=== PATIENT | male | born 1940 | race Hispanic/Latino ===

== ENCOUNTER 2018-05-08 13:28 | Inpatient (IN) | payer MEDICARE ==
[~2018-05-08] VITALS: Ht 177.8 cm; Wt 137.4 kg
[2018-05-08 14:02] LABS: BASOPHILS % (AUTO) 0.4 % (0.0-5.0); EOSINOPHILS % (AUTO) 0.1 % (0.0-8.0); HEMATOCRIT 49.1 % (42-54); LYMPHOCYTES % (AUTO) 9.5 % (21.0-51.0); MEAN CORPUSCULAR HEMOGLOBIN 29.1 pg (27.0-33.0); MEAN CORPUSCULAR HGB CONC 33.8 g/dL (32.0-36.0); MEAN CORPUSCULAR VOLUME 86.1 fL (79-99); MONOCYTES % (AUTO) 9.1 % (3.0-13.0); NEUTROPHILS % (AUTO) 80.9 % (40.0-77.0); PLATELET COUNT (AUTO) 230 K/uL (130-400); RED CELL DISTRIBUTION WIDTH 14.7 % (11.0-15.5); WHITE BLOOD COUNT (AUTO) 20.4 K/uL (4.8-10.8)
[2018-05-08 14:07] LABS: CARBON DIOXIDE 27 mmol/L (21-32); CHLORIDE 99 mmol/L (101-111); GLOMERULAR FILTR. RATE CALC 77 mL/min (>60); GLUCOSE,RANDOM 154 mg/dL (70-105); POTASSIUM 3.9 mmol/L (3.5-5.1); SODIUM SERUM 137 mmol/L (136-145); UREA NITROGEN, BLOOD 10 mg/dL (7-18)
[2018-05-08 14:11] LABS: INR 0.91 (0.85-1.15); PROTHROMBIN TIME 9.6 SEC (9.6-11.6)
[2018-05-08 14:17] LABS: ALBUMIN 3.7 g/dL (3.5-5.0)
[2018-05-08 14:22] LABS: ALANINE AMINOTRANSFERASE 27 U/L (12-78); ASPARTATE AMINOTRANSFERASE 12 U/L (10-37); BILIRUBIN,TOTAL 1.1 mg/dL (0.2-1.0); CREATINE KINASE MB < 0.5 ng/mL (0.5-3.6); CREATINE KINASE, TOTAL 44 U/L (21-232); MYOGLOBIN 30 ng/mL (10-92); TOTAL PROTEIN, SERUM 7.5 g/dL (6.0-8.3); TROPONIN I < 0.04 ng/mL (0.00-0.06)
[2018-05-08] MEDS ORDERED: ACETAMINOPHEN EXTRA STRENGTH 500 MG TABLET ONE (14:33)
[2018-05-08 14:34] LABS: APPEARANCE,URINE Cloudy (CLEAR); BILIRUBIN,URINE Negative (NEGATIVE); COLOR,URINE Yellow (YELLOW); GLUCOSE, URINE (UA) Negative (NEGATIVE); KETONES,URINE Trace mg/dL (NEGATIVE); LEUKOCYTE ESTERASE ,URINE Large (NEGATIVE); NITRATE,URINE Positive (NEGATIVE); OCCULT BLOOD,URINE Large (NEGATIVE); PROTEIN,URINE POS 1+ (NEGATIVE)
[2018-05-08 14:41] LABS: WBC,URINE >100 /HPF (0-1)
[2018-05-08 14:42] LABS: BACTERIA,URINE Moderate /HPF (None Seen); SQUAMOUS EPITHELIAL CELL,UR None Seen /HPF (0-2)
[2018-05-08] MEDS ORDERED: CEFTRIAXONE SODIUM 2 GM VIAL ONE (14:47)
[2018-05-08] MEDS ORDERED: SODIUM CHLORIDE 0.9% 1000ML 2,000 ML IV ONE (14:47)
[2018-05-08] MEDS ORDERED: IOHEXOL-350 75 ML VIAL IV ONE (17:32)
[2018-05-08] MEDS ORDERED: MORPHINE SULFATE 4 MG/1ML SYG IV PRN (17:45)
[2018-05-08 18:35] VITALS: BP 146/85
[2018-05-08] MEDS ORDERED: SOLI10TA PO (19:35)
[2018-05-08] MEDS ORDERED: HYDR12.530 PO (19:35)
[2018-05-08] MEDS ORDERED: DOXA8TAB81 PO (19:35)
[2018-05-08] MEDS ORDERED: ALBU8.5H8 IH (19:35)
[2018-05-08] MEDS ORDERED: FINA5TAB41 PO (19:35)
[2018-05-08] MEDS ORDERED: PRAV20TA4 PO (19:35)
[2018-05-08 19:42] VITALS: BP 149/97
[2018-05-08] MEDS: ENOXAPARIN SODIUM 30 MG/0.3 ML SQ SCH (20:27)
[2018-05-08] MEDS: FAMOTIDINE 20MG TAB 20 MG TAB PO SCH (20:27)
[2018-05-08] MEDS: SODIUM CHLORIDE 0.9% 1000ML 1,000 ML IV SCH (20:27)
[2018-05-09 00:05] VITALS: BP 145/90
[2018-05-09 04:26] VITALS: BP 140/81
[2018-05-09] MEDS: SODIUM CHLORIDE 0.9% 1000ML 1,000 ML IV SCH ×2 (04:48→14:44)
[2018-05-09 05:11] LABS: HEMATOCRIT 42.3 % (42-54); MEAN CORPUSCULAR HEMOGLOBIN 29.4 pg (27.0-33.0); MEAN CORPUSCULAR VOLUME 86.5 fL (79-99); PLATELET COUNT (AUTO) 207 K/uL (130-400); RED BLOOD CELL COUNT(AUTO) 4.89 MIL/uL (4.50-6.20); RED CELL DISTRIBUTION WIDTH 14.4 % (11.0-15.5); WHITE BLOOD COUNT (AUTO) 19.8 K/uL (4.8-10.8)
[2018-05-09 05:28] LABS: ALBUMIN 2.8 g/dL (3.5-5.0); BILIRUBIN,TOTAL 0.9 mg/dL (0.2-1.0); POTASSIUM 3.6 mmol/L (3.5-5.1); TOTAL PROTEIN, SERUM 6.1 g/dL (6.0-8.3)
[2018-05-09 07:55] VITALS: BP 138/86
[2018-05-09 11:39] VITALS: BP 145/73
[2018-05-09] MEDS: FAMOTIDINE 20MG TAB 20 MG TAB PO SCH ×2 (11:42→20:30)
[2018-05-09] MEDS: ACETAMINOPHEN 325 MG TAB PO PRN (11:43)
[2018-05-09] MEDS: ENOXAPARIN SODIUM 30 MG/0.3 ML SQ SCH ×2 (11:44→20:31)
[2018-05-09] MEDS ORDERED: CEFTRIAXONE SODIUM 1 GM IVP SCH (14:00)
[2018-05-09 16:05] VITALS: BP 145/81
[2018-05-09 20:04] VITALS: BP 140/83
[2018-05-09] MEDS ORDERED: LORAZEPAM 0.5 MG TABLET PO ONE (21:30)
[2018-05-09] MEDS ORDERED: NICOTINE 21 MG/ 24 HR PATCH TD ONE (21:37)
[2018-05-09] MEDS ORDERED: LORAZEPAM 0.5 MG TABLET ONE (21:37)
[2018-05-10] VITALS (7 sets, daily range): BP systolic 132–163; BP diastolic 73–99
[2018-05-10] MEDS: SODIUM CHLORIDE 0.9% 1000ML 1,000 ML IV SCH ×2 (03:54→04:48)
[2018-05-10 04:19] LABS: HEMATOCRIT 40.4 % (42-54); MEAN CORPUSCULAR HEMOGLOBIN 29.6 pg (27.0-33.0); MEAN CORPUSCULAR HGB CONC 34.4 g/dL (32.0-36.0); MEAN CORPUSCULAR VOLUME 86.2 fL (79-99); PLATELET COUNT (AUTO) 201 K/uL (130-400); RED BLOOD CELL COUNT(AUTO) 4.69 MIL/uL (4.50-6.20); RED CELL DISTRIBUTION WIDTH 14.6 % (11.0-15.5); WHITE BLOOD COUNT (AUTO) 15.3 K/uL (4.8-10.8)
[2018-05-10 04:29] LABS: CREATININE 0.9 mg/dL (0.5-1.5); POTASSIUM 3.4 mmol/L (3.5-5.1)
[2018-05-10] MEDS ORDERED: NICOTINE 21 MG/ 24 HR PATCH TD SCH ×2 (09:00→22:00)
[2018-05-10] MEDS: FAMOTIDINE 20MG TAB 20 MG TAB PO SCH ×2 (10:35→20:35)
[2018-05-10] MEDS: ENOXAPARIN SODIUM 30 MG/0.3 ML SQ SCH ×2 (10:36→20:40)
[2018-05-10] MEDS: ACETAMINOPHEN 325 MG TAB PO PRN (10:36)
[2018-05-10] MEDS ORDERED: MEROPENEM 1GM IVPB PREMIXED 1 GM IV SCH (11:30)
[2018-05-10] MEDS ORDERED: MEROPENEM 500MG+NS 50ML 50 ML IV SCH (14:00)
[2018-05-10] MEDS ORDERED: MEROPENEM 500 MG VIAL IVP SCH (14:00)
[2018-05-10] MEDS: MEROPENEM 1 GM VIAL IVP SCH ×3 (15:05→22:38)
[2018-05-11] MEDS: SODIUM CHLORIDE 0.9% 1000ML 1,000 ML IV SCH ×4 (02:49→21:30)
[2018-05-11 04:23] VITALS: BP 146/81
[2018-05-11 05:25] LABS: HEMATOCRIT 40.2 % (42-54); MEAN CORPUSCULAR HEMOGLOBIN 29.6 pg (27.0-33.0); MEAN CORPUSCULAR HGB CONC 34.4 g/dL (32.0-36.0); MEAN CORPUSCULAR VOLUME 86.1 fL (79-99); PLATELET COUNT (AUTO) 238 K/uL (130-400); RED BLOOD CELL COUNT(AUTO) 4.67 MIL/uL (4.50-6.20); RED CELL DISTRIBUTION WIDTH 14.5 % (11.0-15.5); WHITE BLOOD COUNT (AUTO) 11.8 K/uL (4.8-10.8)
[2018-05-11 05:55] LABS: ALBUMIN 2.6 g/dL (3.5-5.0); BILIRUBIN,TOTAL 0.8 mg/dL (0.2-1.0); CREATININE 0.9 mg/dL (0.5-1.5); POTASSIUM 3.5 mmol/L (3.5-5.1); TOTAL PROTEIN, SERUM 6.1 g/dL (6.0-8.3)
[2018-05-11] MEDS: MEROPENEM 1 GM VIAL IVP SCH ×3 (06:16→21:28)
[2018-05-11 07:30] VITALS: BP 130/79
[2018-05-11] MEDS: FAMOTIDINE 20MG TAB 20 MG TAB PO SCH ×2 (09:49→21:28)
[2018-05-11] MEDS: ENOXAPARIN SODIUM 30 MG/0.3 ML SQ SCH ×2 (09:50→21:30)
[2018-05-11 11:00] VITALS: BP 142/92
[2018-05-11 16:00] VITALS: BP 136/80
[2018-05-11 20:30] VITALS: BP 159/98
[2018-05-11] MEDS: NICOTINE 21 MG/ 24 HR PATCH TD SCH (21:28)
[2018-05-11 23:50] VITALS: BP 144/80
[2018-05-12] MEDS: ACETAMINOPHEN 325 MG TAB PO PRN (01:22)
[2018-05-12 03:52] VITALS: BP 131/73
[2018-05-12] MEDS: MEROPENEM 1 GM VIAL IVP SCH ×3 (05:03→21:40)
[2018-05-12 05:39] LABS: HEMATOCRIT 41.6 % (42-54); MEAN CORPUSCULAR HEMOGLOBIN 29.5 pg (27.0-33.0); MEAN CORPUSCULAR HGB CONC 34.1 g/dL (32.0-36.0); MEAN CORPUSCULAR VOLUME 86.5 fL (79-99); PLATELET COUNT (AUTO) 262 K/uL (130-400); RED BLOOD CELL COUNT(AUTO) 4.81 MIL/uL (4.50-6.20); RED CELL DISTRIBUTION WIDTH 14.6 % (11.0-15.5); WHITE BLOOD COUNT (AUTO) 10.4 K/uL (4.8-10.8)
[2018-05-12 05:45] LABS: INR 0.92 (0.85-1.15); PROTHROMBIN TIME 9.7 SEC (9.6-11.6)
[2018-05-12 05:51] LABS: MAGNESIUM 1.9 mg/dL (1.80-2.40)
[2018-05-12 08:00] VITALS: BP 155/99
[2018-05-12] MEDS: FAMOTIDINE 20MG TAB 20 MG TAB PO SCH ×2 (08:14→21:40)
[2018-05-12 11:00] VITALS: BP 152/94
[2018-05-12] MEDS: SODIUM CHLORIDE 0.9% 1000ML 1,000 ML IV SCH ×2 (14:30→21:41)
[2018-05-12] MEDS: ENOXAPARIN SODIUM 30 MG/0.3 ML SQ SCH ×2 (14:30→21:39)
[2018-05-12 16:00] VITALS: BP 139/83
[2018-05-12 20:00] VITALS: BP 140/90
[2018-05-12] MEDS ORDERED: ATORVASTATIN CALCIUM 10 MG TABLET PO SCH (21:00)
[2018-05-12] MEDS: NICOTINE 21 MG/ 24 HR PATCH TD SCH (21:40)
[2018-05-13] VITALS: BP 138/90
[2018-05-13 04:00] VITALS: BP 144/84
[2018-05-13] MEDS: MEROPENEM 1 GM VIAL IVP SCH ×2 (05:29→14:05)
[2018-05-13 08:00] VITALS: BP 146/89
[2018-05-13] MEDS: ENOXAPARIN SODIUM 30 MG/0.3 ML SQ SCH (08:08)
[2018-05-13] MEDS: FAMOTIDINE 20MG TAB 20 MG TAB PO SCH (08:09)
[2018-05-13] MEDS: SODIUM CHLORIDE 0.9% 1000ML 1,000 ML IV SCH (08:30)
[2018-05-13] MEDS ORDERED: DOXAZOSIN MESYLATE 2 MG TABLET PO SCH (09:00)
[2018-05-13] MEDS ORDERED: HYDROCHLOROTHIAZIDE 25 MG TABLET PO SCH (09:00)
[2018-05-13] MEDS ORDERED: FINASTERIDE 5 MG TABLET PO SCH (09:00)
[2018-05-13] MEDS ORDERED: **HM** VESICARE 10MG PO SCH (09:00)
[2018-05-13 11:00] VITALS: BP 136/87
== END 2018-05-13 17:15 | DRG 871 ==
LOC: EDH 13:28 → EDHIP 15:40 → 3CH 17:47
PROVIDERS: ADMIT Family Medicine; ATTEND Family Medicine
PROC: 5A09357 Assistance with Respiratory Ventilation, Less than 24 Consecutive Hours, Continuous Positive Airway Pressure (ICD-10-PCS; 2018-05-10)
PROC: 5A09357 Assistance with Respiratory Ventilation, Less than 24 Consecutive Hours, Continuous Positive Airway Pressure (ICD-10-PCS; 2018-05-11)
PROC: 02HV33Z Insertion of Infusion Device into Superior Vena Cava, Percutaneous Approach (ICD-10-PCS; principal; 2018-05-12)
DX: A41.9 Sepsis, unspecified organism (principal); E43 Unspecified severe protein-calorie malnutrition; N39.0 Urinary tract infection, site not specified; Z16.12 Extended spectrum beta lactamase (ESBL) resistance; N40.0 Benign prostatic hyperplasia without lower urinary tract symptoms; J44.9 Chronic obstructive pulmonary disease, unspecified; I10 Essential (primary) hypertension; E78.5 Hyperlipidemia, unspecified; G47.33 Obstructive sleep apnea (adult) (pediatric); F17.210 Nicotine dependence, cigarettes, uncomplicated; B96.20 Unspecified Escherichia coli [E. coli] as the cause of diseases classified elsewhere; N43.3 Hydrocele, unspecified; E66.01 Morbid (severe) obesity due to excess calories; Z16.24 Resistance to multiple antibiotics; Z99.89 Dependence on other enabling machines and devices
CPT/HCPCS: 36415; 71045; 72193; 76870; 80048; 80053; 81001; 82550; 82553; 82948; 83605; 83735; 83874; 84484; 85025; 85027; 85610; 85730; 87040; 87088; 87186; 93005; A4218; J0696; J1650; J2185; J7030; Q9967

== ENCOUNTER → 2022-09-27 | Outpatient (CLI) | payer MEDICARE ==
[~2022-09-27] MED LIST: ALBU8.5H8 IH; DOXA8TAB81 PO; FINA5TAB41 PO; HYDR12.530 PO; PRAV20TA4 PO; SOLI10TA PO
== END | disposition home or self-care (01) ==
LOC: RAH 13:45
PROVIDERS: ATTEND Urology
DX: N45.3 Epididymo-orchitis (principal)
CPT/HCPCS: 76870